=== PATIENT | male | born 1950 | race Caucasian/White ===

== ENCOUNTER → 2020-04-10 | Outpatient (CLI) | payer MEDICARE ==
[~2020-04-10] MED LIST: ACET-1600 PO; ASCO100018 PO; ASPI81TA45 PO; CHOL10003 PO; DHA OMEGA PO; ELDE1CAP PO; IBUP-1223 PO; KRIL1CAP31 PO; SIMV20TA19 PO; SIMVASTATIN PO; TAMS-11 PO; TIZA4TAB2 PO; TURMERIC PO; UBID200C35 PO; WILL BRING LIST; [UNRECOGNIZED DRUG - MIXTURE] PO
[2020-04-10 13:33] LABS: MICROSCOPIC NOT IND
[2020-04-10 13:55] LABS: BASOPHILS % (AUTO) 1 % (0-1); EOSINOPHILS % (AUTO) 1 % (1-7); LYMPHOCYTES % (AUTO) 24 % (22-44); MEAN CORPUSCULAR HEMOGLOBIN 32.1 pg (27.5-34.5); MEAN CORPUSCULAR HGB CONC 34.4 g/dL (33.2-36.2); MEAN PLATELET VOLUME 8.4 fL (7.4-10.4); MONOCYTES % (AUTO) 8 % (2-9); NEUTROPHILS % (AUTO) 66 % (42-75); PLATELET COUNT 216 x10^3/uL (130-400); RED BLOOD COUNT 4.94 x10^6/uL (4.38-5.82); RED CELL DISTRIBUTION WIDTH 13.4 % (9.4-14.8)
[2020-04-10 13:58] LABS: MD NO
[2020-04-10 14:04] LABS: ALBUMIN 3.9 g/dL (3.4-5.0); ANION GAP 5 mmol/L (5-15); CALCIUM 9.3 mg/dL (8.5-10.1); CHLORIDE 108 mmol/L (98-107)
[2020-04-10 14:07] LABS: ALANINE AMINOTRANSFERASE 38 U/L (12-78); ALKALINE PHOSPHATASE 67 U/L (45-117); BILIRUBIN,TOTAL 0.9 mg/dL (0.2-1.0); CREATININE 0.87 mg/dL (0.7-1.3); TOTAL PROTEIN 7.5 g/dL (6.4-8.2)
== END | disposition home or self-care (01) ==
LOC: STAR 12:54
PROVIDERS: ATTEND Orthopaedic Surgery
DX: Z01.810 Encounter for preprocedural cardiovascular examination (principal); Z01.818 Encounter for other preprocedural examination; M16.12 Unilateral primary osteoarthritis, left hip; M25.552 Pain in left hip; Z20.828 Contact with and (suspected) exposure to other viral communicable diseases
CPT/HCPCS: 80053; 81003; 85025; 87081; 87635; 87806; 93005; G0475

== ENCOUNTER 2020-04-16 10:28 | Observation (INO) | payer MEDICARE ==
[~2020-04-16] VITALS: Ht 167.6 cm; Wt 81.0 kg
[~2020-04-16 10:28] MED LIST changes: +BACITRACIN 50,000 UNIT ONE; +EPINEPHRINE 1 MG/ML, 1ML ONE; +KETOROLAC 60 MG/2 ML ONE; +ROPIvacaine/PF 0.2%, 20 ML ONE; +SODIUM CHLORIDE 0.9% 50 ML ONE; +TRANEXAMIC ACID 100 MG/ML, 10ML ONE; +VANCOMYCIN 1,000 MG ONE; +morphine SULFATE/PF 0.5 MG/ML, 10ML ONE; +morphine SULFATE/PF 1 MG/ML, 10ML ONE
[2020-04-16] MEDS ORDERED: CHLORHEXIDINE 15 ML UDC MM ONE (11:00)
[2020-04-16] MEDS ORDERED: LACTATED RINGERS 1,000 ML IV SCH (11:00)
[2020-04-16] MEDS ORDERED: MIDAZOLAM 1 MG/ML, 2ML ONE (11:14)
[2020-04-16] MEDS ORDERED: PROPOFOL 10 MG/ML, 20ML ONE (11:15)
[2020-04-16] MEDS ORDERED: FENTANYL PF 250 MCG/5ML ONE (11:15)
[2020-04-16] MEDS ORDERED: LIDOCAINE-MPF 2% ,5ML ONE (11:15)
[2020-04-16] MEDS ORDERED: CEFAZOLIN 1,000 MG ONE ×2 (11:15)
[2020-04-16] MEDS ORDERED: ONDANSETRON 2MG/ML, 2ML ONE (11:15)
[2020-04-16] MEDS ORDERED: VANCOMYCIN 2,000 MG in SODIUM CHLORIDE 0.9% 500 ML IV ONE (12:00)
[2020-04-16] MEDS ORDERED: VANCOMYCIN PMX 1GM/200ML 200 ML IV ONE (12:00)
[2020-04-16] MEDS ORDERED: VANCOMYCIN PER PHARMACY MC PRN (12:00)
[2020-04-16] MEDS ORDERED: VANCOMYCIN 1,900 MG in SODIUM CHLORIDE 0.9% 250 ML IV ONE (12:00)
[2020-04-16] MEDS ORDERED: DIPHENHYDRAMINE 50 MG CAPSULE PO PRN (12:30)
[2020-04-16] MEDS ORDERED: ZOLPIDEM 5MG TABLET PO PRN (12:30)
[2020-04-16] MEDS ORDERED: ONDANSETRON 2MG/ML, 2ML IVPush PRN ×2 (12:30→13:30)
[2020-04-16] MEDS ORDERED: TRANEXAMIC ACID 1,000 MG in SODIUM CHLORIDE 0.9% 100 ML IV ONE (12:30)
[2020-04-16] MEDS ORDERED: morphine SULFATE 10 MG/ML, 1ML IVPush PRN (12:30)
[2020-04-16] MEDS ORDERED: ACETAMINOPHEN 325 MG TABLET PO PRN ×2 (12:30→13:30)
[2020-04-16] MEDS ORDERED: LORazepam 2 MG/ML, 1ML IVPush PRN (12:30)
[2020-04-16] MEDS: D5%-0.45% NACL 1,000 ML IV SCH ×2 (12:30→22:10)
[2020-04-16] MEDS ORDERED: SUCCINYLCHOLINE 20 MG/ML, 10ML ONE (12:55)
[2020-04-16] MEDS ORDERED: ROCURONIUM 10 MG/ML,10ML ONE (12:55)
[2020-04-16] MEDS ORDERED: MEPERIDINE/PF 25MG/0.5ML IVPush PRN (13:30)
[2020-04-16] MEDS ORDERED: DIAZEPAM 5 MG/ML, 2ML IVPush PRN (13:30)
[2020-04-16] MEDS ORDERED: OXYcodone 5 MG/5 ML ORAL.SOL UDC PO PRN (13:30)
[2020-04-16] MEDS ORDERED: FENTANYL PF 100 MCG/2ML IV PRN (13:30)
[2020-04-16] MEDS ORDERED: DIPHENHYDRAMINE 50 MG/ML, 1ML IVPush PRN (13:30)
[2020-04-16] MEDS ORDERED: PROMETHAZINE 25 MG/ML, 1ML IVPush PRN (13:30)
[2020-04-16] MEDS ORDERED: OXYcodone 5 MG/5 ML ORAL.SOL UDC ONE (15:13)
[2020-04-16] MEDS ORDERED: FENTANYL PF 100 MCG/2ML ONE (15:13)
[2020-04-16] MEDS ORDERED: HYDROmorphone 1 MG/ML, 1ML INJ ONE ×2 (15:13→16:03)
[2020-04-16] MEDS: HYDROmorphone 1 MG/ML, 1ML INJ IVPush PRN ×3 (15:32→16:05)
[2020-04-16] MEDS: CEFAZOLIN PMX 2GM/50ML 50 ML IVPB SCH (22:09)
[2020-04-16 23:07] VITALS: BP 110/57
[2020-04-17] MEDS: OXYcodone/APAP 7.5/325MG TABLET PO PRN ×2 (01:27→05:36)
[2020-04-17] MEDS: D5%-0.45% NACL 1,000 ML IV SCH ×3 (01:36→12:00)
[2020-04-17 03:41] VITALS: BP 96/57
[2020-04-17] MEDS: CEFAZOLIN PMX 2GM/50ML 50 ML IVPB SCH (06:26)
[2020-04-17 07:05] VITALS: BP 115/57
[2020-04-17] MEDS ORDERED: ASPIRIN 325 MG TABLET EC PO SCH (08:00)
[2020-04-17] MEDS ORDERED: DOCUSATE 100 MG CAPSULE PO SCH (09:00)
[2020-04-17] MEDS ORDERED: VANCOMYCIN PMX 1GM/200ML 200 ML IVPB ONE (12:00)
[2020-04-17 13:15] VITALS: BP 96/55
== END 2020-04-17 14:50 | disposition home or self-care (01) ==
LOC: OUT 10:28 → ORIP 12:23 → 4NE 20:08 → DCLOUNGE 04-17 14:40
PROVIDERS: ADMIT Orthopaedic Surgery; ATTEND Orthopaedic Surgery
DX: M16.12 Unilateral primary osteoarthritis, left hip (principal); N40.0 Benign prostatic hyperplasia without lower urinary tract symptoms; Z79.899 Other long term (current) drug therapy; Z87.891 Personal history of nicotine dependence
CPT/HCPCS: 27130; 36415; 73502; 85018; 86850; 86900; 96361; 96365; 96366; 96367; 96375; 97110; 97162; 97165; 97530; C1713; C1762; C1776; G0378; J0171; J0330; J0690; J1170; J1885; J2060; J2250; J2274; J2405; J2704; J2795; J3010; J3370; J3490; J7120